=== PATIENT | male | born 1945 | race Caucasian/White ===

== ENCOUNTER → 2019-04-30 | Outpatient (CLI) | payer MEDICARE, OTHER ==
[~2019-04-30] MED LIST: ASPIRIN81 MG PO; ATENOLOL25 MG PO; ATENOLOL50 MG PO; CRESTOR10 MG PO; DIOVAN HCT 1601 EACH PO; EFFIENT10 MG PO; FINASTERIDE5 MG PO; FLOMAX0.4 MG PO; HYDRALAZINE HCL25 MG PO; LUPRON DEPOT30 MG IM; SENNA-S TABLET1 EA PO; TRAVATAN Z5 ML OU; ZOFRAN ODT4 MG PO; ZOLPIDEM TARTRA10 MG PO
--- NOTE | 2019-05-01 08:02 | Diagnostic Imaging Report ---
Bone Scan, delayed phase INDICATION: C61 Malignant neoplasm of prostate. Prostate cancer diagnosis in 05/2016. COMPARISON: Prior bone scan 05/25/2016 REPORT: Approximately 3 hours following intravenous administration of 27.5 mCi of Tc-99m MDP, delayed total body images in the anterior and posterior projections and selected spot images were obtained. Two small foci of increased tracer activity are seen in the skull, one along the sagittal suture posteriorly and one in the right parietal near the midline. Foci of increased tracer in the cervical spine are consistent with degenerative change. Degenerative changes are also seen at multiple levels of the thoracolumbar spine and prominently at L4/L5 bilaterally. Two foci of markedly increased tracer are seen at the anterior ends of the right 5th and 6th ribs in an adjacent pattern, consistent with posttraumatic change. A subtle focus of increased tracer is seen in the right 7th rib laterally, consistent with healed rib fracture. Otherwise, distribution of tracer activity is unremarkable throughout the skeletal system. No abnormal accumulation of tracer is seen in the soft tissues or urinary tract. IMPRESSION: No convincing pattern of metastatic bone disease. The osteoblastic foci in the skull are nonspecific and are unchanged compared to the prior bone scan of 05/25/2016. Solitary bone metastasis to skull with prostate cancer would be very unusual. Other foci are consistent with degenerative changes and are stable compared to prior. The osteoblastic lesions in the left 5th and 6th ribs have typical appearance of healing rib fractures. Signed by: Dr. Isha Bellamy M.D. on 05/01/2019 7:58 AM
== END ==
LOC: NM 12:16
PROVIDERS: ATTEND Radiology Radiation Oncology
DX: C61 Malignant neoplasm of prostate (principal)
CPT/HCPCS: 78306; A9503